=== PATIENT | male | born 1990 | race Hispanic/Latino ===

== ENCOUNTER 2017-06-30 13:41 | Emergency (ER) | payer SELFPAY ==
[~2017-06-30] VITALS: Ht 170.2 cm; Wt 68.0 kg
[2017-06-30 15:51] VITALS: BP 131/77
== END 2017-06-30 15:51 | disposition home or self-care (01) | DRG 605 ==
LOC: ED 13:41
DX: S61.451A Open bite of right hand, initial encounter (principal); S60.474A Other superficial bite of right ring finger, initial encounter; W54.0XXA Bitten by dog, initial encounter; Y92.410 Unspecified street and highway as the place of occurrence of the external cause